=== PATIENT | male | born 1955 | race Native Hawaiian/Other Pacific Islander ===

== ENCOUNTER → 2018-07-30 | Outpatient (CLI) | payer MEDICAID ==
[~2018-07-30] MED LIST: SESTAMIBI TC99M/UD ISOTOPE 1 EA INJ INJ ONE
[2018-07-30 08:35] VITALS: BP_SYST 151; BP_SYST 155; BP_DIAS 92; BP_DIAS 95
[2018-07-30 11:28] VITALS: BP 159/92
== END | disposition home or self-care (01) ==
LOC: CARDMN 08:12
PROVIDERS: ATTEND Internal Medicine Cardiovascular Disease
DX: I25.89 Other forms of chronic ischemic heart disease (principal); R07.9 Chest pain, unspecified
CPT/HCPCS: 78452; 93017; 93306; A9500